=== PATIENT | female | born 1955 | race Caucasian/White ===

== ENCOUNTER 2017-10-16 08:11 | Emergency (ER) | payer MEDICARE ==
--- NOTE | 2017-10-16 09:04 | RAD ---
RIGHT FOREARM TWO VIEWS: HISTORY: Emergency exam. COMPARISON: None. FINDINGS: There is a distal ulnar metaphyseal fracture, which is in the coronal oblique plane with one cortex w ith medial displacement. The remainder of the forearm appears to be intact. IMPRESSION: Minimally displaced distal ulnar metaphyseal fracture. POS: [facility]
--- NOTE | 2017-10-16 09:07 | RAD ---
RIGHT WRIST THREE VIEWS: HISTORY: Fall. Right wrist injury. FINDINGS: The scaphoid waist is intact. A nondisplaced impacted fracture involves the distal radial metaphysis . No intraarticular components are evident. There is minimal displacement of an oblique fracture in volving the distal ulna, at the metadiaphysis. Overlying soft tissue swelling is apparent. Osseous structures are demineralized. IMPRESSION: 1. Distal radial and ulnar fractures. 2. Osteoporosis. POS: [facility]
[2017-10-16] MEDS ORDERED: HYDROcodone/Acetaminophen 10/325 mg Tablet ONE (09:20)
--- NOTE | 2017-10-16 10:09 | CT ---
CT BRAIN WITHOUT CONTRAST: HISTORY: Injury. Multiple falls. COMPARISON: 11/29/2016 FINDINGS: A right-sided extraaxial hypodensity overlying the right cerebral convexity, dural thickening, and po stop changes of right calvarial craniotomy are again seen. The ventricular size is stable, and the b asilar cisterns are patent. No evidence of acute infarct, hemorrhage, midline shift, or abnormal extraaxial fluid collections is seen. Changes of chronic small vessel ischemic disease in the periventricular white matter are redem onstrated. There is fluid in the right maxillary sinus. No acute calvarial fracture is seen. IMPRESSION: No CT evidence of acute intracranial process. POS: [facility]
--- NOTE | 2017-10-16 10:09 | CT ---
CT CERVICAL SPINE NONCONTRAST: History: Fall. Neck injury. FINDINGS: Vertebral body heights are maintained. Disc space narrowing is most pronounced at the C4-5 and C5-6 l evels. Scattered osteophytosis is present. No acute fracture or dislocation are visible. Cervicothora cic junction is intact. There is calcification at the carotid bifurcations. IMPRESSION: 1. Prominent degenerative changes of the cervical spine. No acute osseous abnormalities are demonstra yaima. 2. Atherosclerosis. POS: [facility]
--- NOTE | 2017-10-16 10:10 | RAD ---
CHEST TWO VIEWS: History: Injury. Fall. Comparison: 10-04-16 FINDINGS: Lungs are clear. No pneumothorax or effusion. Cardiac silhouette and mediastinal contours are within normal limits. There is cement seen in the lower thoracic spine vertebrae, similar. No new compression fracture of t he thoracic spine is appreciated. IMPRESSION: No acute intrathoracic abnormality. POS: [facility]
== END 2017-10-16 10:30 | disposition home or self-care (01) ==
LOC: ERS 08:11
DX: S52.501A Unspecified fracture of the lower end of right radius, initial encounter for closed fracture (principal); S52.601A Unspecified fracture of lower end of right ulna, initial encounter for closed fracture; I25.10 Atherosclerotic heart disease of native coronary artery without angina pectoris; E03.9 Hypothyroidism, unspecified; K21.9 Gastro-esophageal reflux disease without esophagitis; I10 Essential (primary) hypertension; J44.9 Chronic obstructive pulmonary disease, unspecified; E11.9 Type 2 diabetes mellitus without complications; Z87.442 Personal history of urinary calculi; Z79.899 Other long term (current) drug therapy; Z79.84 Long term (current) use of oral hypoglycemic drugs; Z79.82 Long term (current) use of aspirin; Z87.891 Personal history of nicotine dependence; W19.XXXA Unspecified fall, initial encounter
CPT/HCPCS: 29125; 70450; 71020; 72125

== ENCOUNTER 2017-10-29 08:28 | Emergency (ER) | payer MEDICARE ==
[2017-10-29] MEDS ORDERED: Morphine 2 MG/ML SYRINGE ONE (09:53)
--- NOTE | 2017-10-29 10:04 | RAD ---
RIGHT SHOULDER THREE VIEWS: HISTORY: Right shoulder pain. COMPARISON: No comparison. FINDINGS: Acromioclavicular and glenohumeral alignment are maintained with mild osteophytosis. No acute fractu re, dislocation, or aggressive osseous erosions are apparent. IMPRESSION: Mild osteoarthritic changes, right shoulder. POS: [facility]
--- NOTE | 2017-10-29 10:06 | RAD ---
RIGHT WRIST 3 VIEWS: Date: 10/29/17 HISTORY: 62-year-old female with right wrist pain. COMPARISON: 10/16/17. FINDINGS: Splint material overlies the wrist and somewhat obscures underlying bony detail. There is an oblique fracture of the distal ulna metadiaphysis which shows more displacement and some foreshortening than on the prior study. IMPRESSION: Oblique fracture of the ulnar metadiaphysis with more displacement and some foreshortening when gloria red to the prior 10/16/17 study. Right wrist joint arthrosis. CODE T. POS: [facility]
== END 2017-10-29 10:57 | disposition home or self-care (01) ==
LOC: ERS 08:28
DX: S52.601A Unspecified fracture of lower end of right ulna, initial encounter for closed fracture (principal); E03.9 Hypothyroidism, unspecified; E11.9 Type 2 diabetes mellitus without complications; I25.10 Atherosclerotic heart disease of native coronary artery without angina pectoris; J44.9 Chronic obstructive pulmonary disease, unspecified; K21.9 Gastro-esophageal reflux disease without esophagitis; I10 Essential (primary) hypertension; Z87.442 Personal history of urinary calculi; Z87.891 Personal history of nicotine dependence; W22.8XXA Striking against or struck by other objects, initial encounter
CPT/HCPCS: 96372; J2270

== ENCOUNTER 2018-01-13 13:28 | Emergency (ER) | payer MEDICARE ==
--- NOTE | 2018-01-13 15:50 | RAD ---
THREE VIEWS LEFT HAND: Date: 01-13-18 Comparison: 03-30-15 History: Trauma, fall, pain. FINDINGS: There is an obliquely oriented fracture involving the lateral base of the third proximal phalanx exte nding into the third metacarpal phalangeal joint. There is minimal distraction/displacement of the fr acture fragment. The fracture fragment measures 5 mm in greatest dimension. No evidence for dislocati on. No additional fracture is apparent. Soft tissue swelling is seen in the region of the dorsal aspe ct of the hand and at the base of the third finger. IMPRESSION: Obliquely oriented mildly displaced/distracted intraarticular fracture involving the lateral base of the third proximal phalanx. POS: [facility]
[2018-01-13] MEDS ORDERED: HYDROcodone/Acetaminophen 5/325 mg Tablet ONE (16:01)
[2018-01-13 16:16] LABS: #Lymphocytes 1.4 thou/uL (1.20-3.40); #Monocytes 0.7 thou/uL (0.11-0.59); #Neutrophils 4.4 thou/uL (1.40-6.50); %Basophils 0.5 % (0.0-1.0); %Eosinophils 0.4 % (0.0-10.0); %Lymphocytes 20.8 % (21.0-51.0); %Monocytes 10.3 % (0.0-10.0); %Neutrophils 68.1 % (42.0-75.0); Hemoglobin 10.4 g/dL (12.0-16.0); Mean Corpuscular Hemoglobin 34.2 pg (27.0-31.0); Mean Platelet Volume 6.3 fL (7.4-10.4); Platelet Count 208 thou/uL (130-400); RBC Distribution Width 14.3 % (11.5-14.5); Red Blood Cell (RBC) Count 3.05 mill/uL (4.20-5.40); White Blood Cell (WBC) Count 6.5 thou/uL (4.8-10.8)
--- NOTE | 2018-01-13 16:32 | CT ---
NONCONTRAST HEAD CT: 01/13/18 HISTORY: Patient tripped and fell yesterday. Hit head on table. COMPARISON: 10/16/17. TECHNIQUE: Noncontrast head CT is performed from skull base to skull vertex. FINDINGS: Stable postsurgical changes involving the right calvarium with underlying malacic change, similar to the previous exam. With the exception of the previously identified areas of malacia in the right temp oral frontal region, cortical garcia-white matter differentiation is preserved. No evidence of hydrocep halus. No parenchymal hemorrhage or extra-axial hematoma. No midline shift. Adequate aeration of the sinuses and mastoid air cells. Cavernous carotid atherosclerosis is noted. IMPRESSION: No intracranial posttraumatic sequela. POS: [facility]
[2018-01-13 16:40] LABS: ALT (SGPT) 11 U/L (8-55); AST (SGOT) 14 U/L (5-34); Albumin 4.1 g/dL (3.4-4.8); Alkaline Phosphatase 185 U/L (40-150); Anion Gap 14 mmol/L (10-20); BUN (Urea Nitrogen) 15 mg/dL (9.8-20.1); Bilirubin, Total 0.4 mg/dL (0.2-1.2); Calc. Creatinine Clearance 0 mL/min (70-130); Calcium 8.9 mg/dL (7.8-10.44); Carbon Dioxide 29 mmol/L (23-31); Chloride 100 mmol/L (98-107); Estimated GFR-MDRD 61; Globulin 2.9 g/dL (2.4-3.5); Glucose 105 mg/dL (80-115); Sodium 140 mmol/L (136-145)
== END 2018-01-13 16:36 | disposition home or self-care (01) ==
LOC: ERS 13:28
DX: S62.613A Displaced fracture of proximal phalanx of left middle finger, initial encounter for closed fracture (principal); I25.10 Atherosclerotic heart disease of native coronary artery without angina pectoris; E03.9 Hypothyroidism, unspecified; K21.9 Gastro-esophageal reflux disease without esophagitis; I10 Essential (primary) hypertension; J44.9 Chronic obstructive pulmonary disease, unspecified; E11.9 Type 2 diabetes mellitus without complications; Z87.891 Personal history of nicotine dependence; Z79.82 Long term (current) use of aspirin; Z79.899 Other long term (current) drug therapy; W17.89XA Other fall from one level to another, initial encounter
CPT/HCPCS: 36415; 70450; 80053; 85025